=== PATIENT | female | born 1980 | race Two or more races ===

== ENCOUNTER → 2025-04-20 | Outpatient (CLI) | payer OTHER, SELFPAY ==
--- NOTE | 2025-04-20 14:45 | XR_ITS ---
Examination: Screening digital mammography, bilateral Computer aided detection 3-D breast Tomosynthesis, bilateral Date and time of exam: April 20, 2025, 1445 hours Compared to mammograms dating to December 16, 2020 Indication: Screening Technique: Nonmagnified MLO, CC views of the breasts to been obtained, reconstructed from 3-D Tomosynthesis images. R2 computer aided detection program utilized for evaluation of suspicious masses and/or abnormal calcifications. 3-D Tomosynthesis images obtained. Findings: The breasts are heterogeneously dense, which may obscure small masses Benign calcifications. 7 mm nodule lobular margins upper outer left breast Impression: BI-RADS Category 0: Incomplete: Need additional imaging evaluation Recommend follow-up spot tomographic views of 7 mm nodule lobular margins upper outer left breast as well as bilateral breast sonography to complete the workup.
== END | disposition home or self-care (01) ==
LOC: CDIM 14:37
PROVIDERS: Referring Provider Nurse Practitioner Family; Visit Provider Nurse Practitioner Family
DX: Z12.31 Encounter for screening mammogram for malignant neoplasm of breast (principal); N63.21 Unspecified lump in the left breast, upper outer quadrant; R92.8 Other abnormal and inconclusive findings on diagnostic imaging of breast
CPT/HCPCS: 77063; 77067

== ENCOUNTER → 2025-04-29 | Outpatient (CLI) | payer OTHER, SELFPAY ==
--- NOTE | 2025-04-29 10:29 | XR_ITS ---
EXAMINATION: Bilateral wrist sonography complete TECHNIQUE: Grayscale sonographic images bilateral breast including retroareolar and axillary regions Date and time: April 29 2025, 1050 hours INDICATIONS: Mammogram April 20, 2025 7 mm nodule upper outer left breast, patient states left breast pain months FINDINGS: Sonographic images right breast 12:00 nodule circumscribed 7 x 5 mm 10:00 nodule circumscribed 8 x 3 mm Sonographic images left breast 2:00 nodule irregular indistinct margins 9 x 8 mm Benign cysts 3:00 nodule lobular margins 5 x 6 mm 5:00 nodule circumscribed 6 x 4 mm 11:00 nodule circumscribed 7 x 3 mm Multiple smaller ( IMPRESSION: BI-RADS Category 4: Suspicious for malignancy Suspicious nodule 12 o'clock position left breast, biopsy is needed to exclude breast carcinoma, this mass is amenable to ultrasound-guided breast biopsy for diagnosis
--- NOTE | 2025-04-29 10:38 | XR_ITS ---
Examination: Diagnostic digital mammography, unilateral, left Computer aided detection 3-D breast Tomosynthesis, unilateral Date and time of exam: 11/23/2019 1525, 11:43 a.m. Comparisons: September 2021 through April 2025 Indications: Further evaluation of abnormality at upper outer left breast seen on the screening exam. Technique: Nonmagnified MLO, CC views of the left breast have been obtained, reconstructed from 3-D Tomosynthesis images. R2 computer aided detection program utilized for evaluation of suspicious masses and/or abnormal calcifications. 3-D Tomosynthesis images obtained. Technologist: Findings: The breasts are heterogeneously dense, which may obscure small masses. No evidence of abnormal masses or suspicious calcifications. The previously disc abnormality does not persist on spot compression views and represents superposition of normal fibroglandular tissue Impression: BI-RADS category 1: Negative findings (within normal) Recommend 1 year follow-up mammogram
== END | disposition home or self-care (01) ==
LOC: CDIM 10:15
PROVIDERS: PCP Nurse Practitioner Family; Referring Provider Nurse Practitioner Family; Visit Provider Nurse Practitioner Family
DX: R92.312 Mammographic fatty tissue density, left breast (principal); N63.25 Unspecified lump in the left breast, overlapping quadrants
CPT/HCPCS: 76641; 77061; 77065; G0279